=== PATIENT | male | born 1950 | race Caucasian/White ===

== ENCOUNTER 2024-06-06 17:56 | Observation (INO) | payer OTHER, SELFPAY ==
[2024-06-05 17:37] VITALS: BP 135/81
[2024-06-05 21:57] VITALS: BP 141/73
--- NOTE | 2024-06-06 00:57 | ED.GENMED ---
Addendum entered and electronically signed by Elana Ramos DO 06/06/24 15:52:
Patient seen by physical therapy and case management. Recommending SNF. On today, recommending admission for placement
Original Note:
History of Present Illness
General
Chief Complaint: Fall
Time Seen by Provider: 06/05/24 23:48
History of Present Illness
History of Present Illness:
74-year-old male with history of diabetes, CAD, hyperlipidemia presenting to the emergency department for right knee pain. Patient reports prior to arrival he was getting out of his bed and tripped and landed on his right knee with subsequent pain.
He initially difficulty getting up. Denies head injury or loss of consciousness. Denies prodromal symptoms lightheadedness, weakness, chest pain, difficulty breathing. He currently denies acute complaints other than right knee pain. Denies
additional injuries or additional acute medical complaints
Past History
Past History
ED Past Medical History: HTN (Noncompliant with medications) and Other (Cataracts)
ED Past Surgical History: Orthopedic
Social History
Tobacco: Non-smoker
Alcohol: Occasional
Drug: None
Phy Exam
Physical Exam
Physical Exam:
General: Well-appearing, no clinical signs of dehydration, nontoxic and in no acute distress
HEENT: protecting airway
Neck: appears supple, no midline tenderness
CV: Normal heart rate, regular rhythm
Resp: No accessory muscle use, no increased work of breathing, lungs clear to auscultation bilaterally
Abd: Soft and non-distended, no tenderness to palpation
Extremities: Mild swelling to the right knee with abrasion. Suprapatellar effusion. Limited range of motion secondary to pain. Distal sensation and pulses intact. No erythema or warmth
Neuro: alert, no focal neurologic deficit
: deferred
Rectal: deferred
Psych: Normal affect
Skin: Intact
Course
Orders/Labs/Results
Orders:
Orders
06/05/24 21:58
CR Knee - Right 1 Or 2 Views Urgent
Comment:
Reason For Exam: fall, injury
06/06/24 00:21
Ketorolac [Toradol] 15 mg IM NOW STA
06/06/24 01:10
Knee Immobilizer Right-Treatme ONCE
06/06/24 01:51
Case Management Consult ONCE
Case Management Consult: Discharge Planning
Physical Therapy Consult [Pt Eval And Treat] Urgent
Activity Level: Ambulate
Abnormal Lab Results
06/06/24
10:04
POC Glucose 281 H mg/dl
(70-99)
Vital Signs
Initial and Last Documented VS:
Initial Vital Signs
Temp Pulse Resp BP Pulse Ox
97.9 F 95 20 135/81 95
06/05/24 17:37 06/05/24 17:37 06/05/24 17:37 06/05/24 17:37 06/05/24 17:37
Last Documented Vital Signs
Temp Pulse Resp BP Pulse Ox
99.3 F 87 16 139/78 95
06/06/24 10:07 06/06/24 11:40 06/06/24 11:40 06/06/24 11:40 06/06/24 11:40
MDM/Problems Addressed
MDM/Problems Addressed:
74-year-old male presenting to the emergency department after a fall out of his bed, landing on his right knee with subsequent pain. Vital signs are normal.
On exam patient is well-appearing, no acute distress or discomfort. He is resting comfortably, initially sleeping during my examination. Patient does arrive with some trauma to the right knee, swelling, abrasion. Suspect soft tissue injury.
Lower suspicion for fracture. No malalignment. No neurovascular compromise. No infectious findings without erythema or warmth. No additional signs of trauma on assessment. Patient denies any prodromal symptoms to his fall, without concern for
syncope or near syncope. X-ray obtained, without sign of fracture. Will place patient in knee immobilizer. Otherwise feel stable for discharge with continued outpatient supportive therapy. Return precautions discussed and patient verbalized
understanding
02:00 -patient having difficulty ambulating. He does not want to stay in the hospital. Will place consult for PT and health and social care teacher for discharge planning
*Critical Care Note
Total Time (30-74mins, 75-104mins- exclusive of procedures): Not Applicable
ED Attending Note
-
Portions of this chart may have been created with voice recognition software.� Occasional wrong word or��sound alike� substitutions may have occurred due to the inherent limitations of voice recognition software.
Discharge Plan
Departure
Patient Disposition: Home (Routine Discharge)
Date of Disposition: 06/06/24
Time of Disposition: 01:12
Patient with high blood pressure during this ER visit?: No
Condition: Good
Discharge Problem:
Right knee injury, Effusion of knee joint right
Instructions: Knee Immobilizer (DC), Knee pain - ED discharge instructions
Prescriptions:
No Action
losartan 25 mg Tablet
25 mg PO DAILY 30 Days Qty: 30 0RF
Patient Comments:
06/06/2024 Member reports medication and no longer taking. Reports unknown when he last saw PCP.
atorvastatin 40 mg tablet
40 mg PO DAILY
Patient Comments:
06/06/2024 Member reports medication and no longer taking. Reports unknown when he last saw PCP.
Januvia 50 mg tablet
50 mg PO DAILY
Patient Comments:
06/06/2024 Member reports medication and no longer taking. Reports unknown when he last saw PCP.
metformin 500 mg tablet
1,000 mg PO BID@0800,1700
Patient Comments:
06/06/2024 Member reports medication and no longer taking. Reports unknown when he last saw PCP.
aspirin 81 mg Tablet,Delayed Release (Dr/Ec)
81 mg PO DAILY Qty: 30 1RF
Patient Comments:
06/06/2024 Member reports medication and no longer taking. Reports unknown when he last saw PCP.
Referrals:
UNKNOWN - PT DOES,NOT KNOW [Family Provider] -
Activity Restrictions/Additional Instructions:
You were seen in the emergency department for knee pain after a fall
You had an x-ray of your knee, without sign of fracture. There is a small effusion to the knee, which is resultant from likely a soft tissue injury. You were placed in a knee immobilizer. Please take Tylenol or Motrin as needed for pain and
follow-up with your doctor.
Please follow-up closely with your primary care physician.
Return to the emergency department for any worsening of your symptoms, or any development of chest pain, difficulty breathing, abdominal pain with persistent vomiting and inability to tolerate food or liquid by mouth (concern for dehydration),
weakness, headache or confusion, fever greater than 100.4, or any additional symptoms that are concerning to you.
Thank you for choosing [facility].
Interventions
Interventions:
*Risk Screen - Suicide Last Done: 06/05/24 17:37
*General Assessment Last Done: 06/05/24 17:37
*Neglect/Abuse Screening Last Done: 06/05/24 17:37
ED- Fall Risk Assessment Last Done: 06/05/24 21:58
*ED COVID-19 Vaccine History Last Done: 06/06/24 11:03
ED-Musculoskeletal Assessment Last Done: 06/05/24 21:58
ED- Neurological Assessment Last Done: 06/05/24 21:58
ED-Skin Assessment Last Done: 06/05/24 21:59
Discharge Date and Time
Print Language: ZAMBIAN
[2024-06-06] MEDS: TORADOL 15 MG IM (01:01)
[2024-06-06 02:04] VITALS: BP 151/81
[2024-06-06 10:05] LABS: Glucose - Point of Care 281 mg/dl (70-99)
[2024-06-06 10:07] VITALS: BP 138/72
--- NOTE | 2024-06-06 11:18 | CM ---
Patient seen at bedside in ED. Patient seen by therapy and they are recommending SNF. CM spoke with patient who stated that he lives in a one room apartment. Patient now on O2 in ED. Patient with no prior DME other than cane. Patient stated that he
was in [facility] in the past, and stated it was nothing to write home with but he would return patient, also remembered [facility]. CM sent referrals to SNF options in local area; [facility], [facility], [facility], [place],
[facility] and [facility]. Per chart review patient has a sister, niece and friend. Per prior chart review patient gave; Viri; [phone] Patient niece, ;Kevin/Nephew [phone];Jose/Samdpkt-tl-txf [phone]
Patient stated his PCP is Dr. Wilson at [facility] and he goes to the [facility] for pharmacy needs. CM will reach out to family members. Patient stated that they did not have a car either and he needed to be closer to home.
Patient will need authorization when SNF bed identified. CM will continue to follow for discharge planning needs.
Plan; SNF; referrals sent. will need auth when bed available.
[2024-06-06 11:40] VITALS: BP 139/78
[2024-06-06 16:00] VITALS: BP 130/80
--- NOTE | 2024-06-06 16:19 | PHANOTE ---
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
--- NOTE | 2024-06-06 16:49 | HPS.HSE ---
Family Physician
-
Family Physician: NOT KNOW UNKNOWN - PT DOES
Chief Complaint
-
Fall
History of Present Illness
74-year-old presented after a fall he was getting out of bed and tripped and landed on the right knee he had initially difficulty getting up. He was complaining of pain in the right knee was seen in the ER by PT who recommending rehab.
Patient has not been taking his medicines for the past year because he has been 'feeling good' he says. When I spoke to the patient's sister and told her about this she said 'that is nothing new'.
Medical History
Past Medical History
Past Medical History: Reports Other
Additional Past Medical History:
Hypertension, diabetes, cataracts coronary artery disease, history of CVA, diabetes, hyperlipidemia, neuropathy-NOS, ambulatory dysfunction, history of falls
Past Surgical History: Reports Other
Additional Past Surgical History:
Hand surgery
Social History
Tobacco: Non-smoker
Alcohol: Occasional
Drug: None
Personal: Single
Living: Alone
Family History
Family History: Not pertinent
Allergies / Home Medications
Allergies reflects when Allergies were last updated in [employer]
Home Medications with original date entered in [employer]
Allergy/Medication List:
Allergies
Allergy/AdvReac Type Severity Reaction Status Date / Time
penicillin G Allergy Unknown Verified 06/05/24 17:40
Penicillins Allergy Unknown Verified 06/05/24 17:40
Home Medications
acetaminophen 650 mg tablet,extended release 650 mg PO [id number] PRN arthritis pain 06/06/24
Review of Systems
-
A 12 point ROS was completed and negative except as noted: Yes
Respiratory: Denies Trouble Breathing
Cardiac: Denies Chest Pain
Abdomen/GI: Denies Abdominal Pain
Musculoskeletal: Reports Joint Pain (right knee)
Physical Exam
Vital Signs
Vital Signs
Temp Pulse Resp BP Pulse Ox
99.3 F 87 16 139/78 95
06/06/24 10:07 06/06/24 11:40 06/06/24 11:40 06/06/24 11:40 06/06/24 11:40
Physical Exam
General: Comfortable
Respiratory: Clear
Cardiac: S1/S2 and Regular Rhythm
GI: Soft and Normal Bowel Sounds
Neuro: AO x 3 and Nonfocal/grossly intact
Data Reviewed
-
Diagnostic Radiology: Report Reviewed by me (X-ray of the knee-no acute changes. Mild joint space narrowing and degenerative spurring indicating degenerative osteoarthritis)
Impression/Plan
-
IMPRESSION/PLAN:
# Mechanical Fall with right knee pain
Head CT as pt not sure if he hit his head.
Pain control
PT OT evaluation
Previous admission here with fall since 2021, ambulatory dysfunction was seen by neurology outpatient EMG/NCS was recommended
Patient was felt to have chronic right-sided L5 lumbar radiculopathy and polyneuropathy likely secondary to poorly controlled diabetes
Check TSH and B12
# Pulse ox of 88-patient without any symptoms unclear if it is error in reading versus other. Check chest x-ray wean for sats above 90
# History of CVA-old frontal lobe conner radiata infarct-aspirin and statin
# Hypertension-losartan if blood pressure goes high.Watch for now.
# Hyperlipidemia-was on atorvastatin-not on med list now. Added
# Diabetes with neuropathy--check hemoglobin A1c.
Not taking any medicines currently
Add metformin
Accu-Cheks and sliding scale coverage
# History of coronary artery disease-Add ASA, low-dose statin
# Noncompliance with medicines
He said he has been 'feeling good' so not taking meds ( Sister aware )
Pharmacy could not verify that the patient has taken any medicines in the past year.
# DVT prophylaxis-Lovenox
# CODE STATUS-Full CODE
I spoke to patient's sister and updated. Also advised that she talk to patient regarding CODE STATUS in detail and get back to us.
Meds ordered per previous discharge meds
Discharge planning.
[2024-06-06 17:18] VITALS: BMI 29.3
[2024-06-06 17:40] LABS: Hemoglobin 13.7 g/dL (13.0-18.0); Mean Corp Hgb Conc. 35.1 g/dL (33.0-37.0); Mean Corpuscular Hgb 31.1 pg (27.0-31.0); Mean Corpuscular Volume 88.4 fL (80.0-94.0); Mean Platelet Volume 10.2 fL (7.4-10.4); Platelet Count 177 10^3/uL (130-400); Red Blood Cell Count 4.41 10^6/uL (4.70-6.10); Red Cell Dist. Width 12.3 % (11.5-14.5); White Blood Cell Count 6.2 10^3/uL (4.8-10.8)
[2024-06-06 17:46] LABS: Blood Urea Nitrogen 36 mg/dl (9-20); Calcium 8.4 mg/dl (8.4-10.2); Carbon Dioxide 30 mmol/L (22-30); Chloride 100 mmol/L (98-107); Estimated Creatinine Clearance 71 ml/min; Glucose 220 mg/dl (70-99); Magnesium 2.1 mg/dl (1.6-2.3); Potassium 4.3 mmol/L (3.5-5.1); Sodium 135 mmol/L (135-145); eGFR > 60.00
[2024-06-06] MEDS: LOVENOX 40 MG SC (21:06)
[2024-06-06] MEDS: PEPCID 20 MG PO (21:06)
[2024-06-06] MEDS: TYLENOL 1000 MG PO (21:07)
[2024-06-06] MEDS: LIPITOR 10 MG PO (21:07)
[2024-06-06 21:16] LABS: Glucose - Point of Care 225 mg/dl (70-99)
[2024-06-06 21:30] VITALS: BP 129/80; BMI 28.0
[2024-06-06 23:30] VITALS: BP 135/70
[2024-06-07 03:35] VITALS: BP 134/79
--- NOTE | 2024-06-07 04:30 | PTCARENOTE ---
Pt received on floor 06/06/24 approximately 1900. Pt with knee immobilizer on. Pt AAOx3 and oriented to room, VSS. Pt able to make needs known, call carlson within reach.
[2024-06-07] MEDS: TYLENOL 1000 MG PO ×2 (04:56→11:17)
[2024-06-07] MEDS: TYLENOL PO (05:01)
[2024-06-07 07:23] VITALS: BP 132/81
[2024-06-07 07:39] LABS: Glucose - Point of Care 198 mg/dl (70-99)
[2024-06-07] MEDS: NOVOLOG FLEXPEN-LOW RESISTANCE 1 UNITS SC (08:20)
[2024-06-07] MEDS: GLUCOPHAGE 500 MG PO (08:21)
[2024-06-07] MEDS: ASPIR LOW (ENTERIC COATED) 81 MG PO (08:21)
[2024-06-07] MEDS: PEPCID 20 MG PO (08:21)
[2024-06-07 10:31] LABS: Glycohemoglobin (HgbA1c) 9.1 % (4.0-5.6)
[2024-06-07 11:07] LABS: Glucose - Point of Care 231 mg/dl (70-99)
[2024-06-07] MEDS: VIBRAMYCIN 100 MG PO (11:17)
[2024-06-07 11:24] VITALS: BP 160/84
[2024-06-07] MEDS: NOVOLOG FLEXPEN-LOW RESISTANCE 2 UNITS SC ×2 (12:00→16:33)
--- NOTE | 2024-06-07 12:27 | W.PN.HOSP.TC ---
Addendum entered and electronically signed by Tracy Mendoza MD 06/07/24 13:28:
Pt has a bed at the rehab
More than 30 minutes spent in discharge including
Final examination of the patient
Summarizing hospital stay
Instructions for continuing care to all relevant caregivers
Preparation of discharge records, prescriptions, and referral forms
Total time spent (in minutes): more than 30 min today
Original Note:
Today's Communication/Plan
-
Discussed with patient sister regarding discharge
Home oxygen evaluation
Wean oxygen
Added doxycycline
Discharge to rehab once authorization obtained
Assessment / Plan
Assessment / Plan
CVS: S1-S2 normal
Chest: CTA B/L
Abdomen: Soft, NT / Bowel sounds present
Extremities: No edema, normal pulses
PRINT OPERATOR: Non focal exam
# Mechanical Fall with right knee pain
Head CT as pt not sure if he hit his head.
Pain control
PT OT evaluation
Previous admission here with fall since 2021, ambulatory dysfunction was seen by neurology outpatient EMG/NCS was recommended
Patient was felt to have chronic right-sided L5 lumbar radiculopathy and polyneuropathy likely secondary to poorly controlled diabetes
Normal TSH and B12
# Pulse ox of 88-Acute hypoxic resp insufficiency
CXR read as pneumonia
Pt really does not have any symptoms of pneumonia
But because of his oxygen levels I will start him on doxycycline and treated as community-acquired pneumonia/atypical pneumonia
Wean oxygen as tolerated and do home oxygen evaluation
# History of CVA-old frontal lobe conner radiata infarct-aspirin and statin
# Hypertension-losartan
# Hyperlipidemia-was on atorvastatin-not on med list now. Added
# Diabetes with neuropathy--hemoglobin A1c 9.1
Not taking any medicines currently
Increase metformin to 850 mg twice daily and change diet to diabetic diet
Accu-Cheks and sliding scale coverage
# History of coronary artery disease-Add ASA, low-dose statin
# Noncompliance with medicines
He said he has been 'feeling good' so not taking meds ( Sister aware )
Pharmacy could not verify that the patient has taken any medicines in the past year.
# DVT prophylaxis-Lovenox
# CODE STATUS-Full CODE
Anticipated Discharge: Today
Subjective/Interval History
-
Date of Service: June 07, 2024
Objective Data
-
Vital Signs:
Vital Signs
Temp Pulse Resp BP Pulse Ox
98.6 F 75 18 160/84 95
06/07/24 11:24 06/07/24 11:24 06/07/24 11:24 06/07/24 11:24 06/07/24 11:41
I&O
06/06/24 06/07/24 06/08/24
06:59 06:59 06:59
Intake Total 240 / 240 480 / 480
Output Total 225 / 225
Balance 240 / 240 255 / 255
--- NOTE | 2024-06-07 12:45 | CM ---
fraud manager reviewed patient's chart and met with patient and patient is for skilled placement referrals sent yesterday but patient wanted a referral sent to [facility], manager case sent referral and spoke with admissions at [facility] and
they can accept patient. Auth received from patient's insurance, for 5 days skilled level 1, 06/07-06/11, NRD 06/11 Auth [id number], Ambulance Auth for Acute Care ambulance [id number], follow up at [phone].
Plan; Patient to transfer by ambulance to [facility] today.
Report [phone]
--- NOTE | 2024-06-07 13:27 | W.DS.TRANS ---
Addendum entered and electronically signed by Tracy Mendoza MD 06/07/24 13:34:
Dictation- [id number]
Original Note:
DC Summary - Line Up Machine Operator
-
Discharge Instructions:
Discharge Diagnosis/Procedures Fall
Mild medial left lower lobe pneumonia
History of CVA
Hypertension
Hyperlipidemia
History of coronary artery disease
Diabetes with neuropathy
Noncompliance with medicines
Diet Diabetic, Carb Controlled
Activity With assistance,As tolerated
Driving Restrictions No driving
Others Tests CXR 6 weeks
Other Services PT,OT
Instructions:
Stand-Alone Forms:
Changes to Home Medications: Yes
Discharge Medications:
DC Medications w/original date entered in [employer]
acetaminophen 500 mg tablet (Tylenol Extra Strength) 1,000 mg (2 x 500 mg) PO Q8H PRN pain #0 tabs 06/07/24
aspirin 81 mg tablet,delayed release 81 mg PO DAILY Blood clot prevention/tx #0 tabs 06/07/24
atorvastatin 10 mg tablet 10 mg PO QPM High cholesterol #0 tabs 06/07/24
doxycycline hyclate 100 mg capsule 100 mg PO Q12 Lung/breathing issues #0 caps 06/07/24
famotidine 20 mg tablet 20 mg PO BID Gastrointestinal issue #0 tabs 06/07/24
losartan 50 mg tablet 50 mg PO DAILY Blood pressure #0 tabs 06/07/24
metformin 850 mg tablet 850 mg PO BID@0800,1700 Diabetes #0 tabs 06/07/24
polyethylene glycol 3350 17 gram oral powder packet 17 g PO DAILYPRN PRN constipation #0 ea 06/07/24
Home Medication Changes
new
All above
Pending Results: No
[2024-06-07] MEDS: COZAAR 50 MG PO (14:26)
[2024-06-07 15:34] VITALS: BP 121/74
[2024-06-07 16:17] LABS: Glucose - Point of Care 247 mg/dl (70-99)
[2024-06-07 16:23] LABS: TSH 0.85 uIU/ml (0.47-4.68)
[2024-06-07] MEDS: GLUCOPHAGE 850 MG PO (16:33)
[2024-06-07 16:42] LABS: Vitamin B12 230 pg/ml (239-931)
== END 2024-06-07 18:20 ==
LOC: 4 WEST ACU 17:56
PROVIDERS: ADMITTING PHYSICIAN Hospitalist; EMERGENCY PHYSICIAN Student in an Organized Health Care Education/Training Program
DX: J18.9 Pneumonia, unspecified organism (principal); M25.561 Pain in right knee; M25.461 Effusion, right knee; S80.211A Abrasion, right knee, initial encounter; W06.XXXA Fall from bed, initial encounter; Z91.148 Patient's other noncompliance with medication regimen for other reason; Z86.73 Personal history of transient ischemic attack (TIA), and cerebral infarction without residual deficits; I10 Essential (primary) hypertension; E78.5 Hyperlipidemia, unspecified; E11.40 Type 2 diabetes mellitus with diabetic neuropathy, unspecified; R09.02 Hypoxemia; I25.10 Atherosclerotic heart disease of native coronary artery without angina pectoris
CPT/HCPCS: 29505; 70450; 71046; 73560; 80048; 82607; 82962; 83036; 83735; 84443; 85027; 96372; 99285; G0378